=== PATIENT | male | born 1990 | race Hispanic/Latino ===

== ENCOUNTER 2020-09-10 12:32 | Outpatient (CLI) | payer OTHER, SELFPAY ==
--- NOTE | ~2020-09-10 | CT_ITS ---
EXAMINATION: CT abdomen pelvis wo con EXAM DATE: 09/10/2020 12:56 INDICATION: Low abdominal pain. TECHNIQUE: Spiral CT of the abdomen and pelvis was performed without contrast. Axial, coronal and s agittal images were reviewed. The dose-length product (DLP) for this examination was 928.48 mGy-cm. The exposure was tailored according to patient size (auto mA exposure control), and iterative recons truction (ASIR) was used as additional dose reduction technique. Comparison is made to prior examinat ion from 04/26/2019. FINDINGS: There is caudate liver lobe hypertrophy. The liver, spleen, adrenal glands and pancreas ar e otherwise unremarkable. Gallbladder is unremarkable. No biliary obstruction. There are 3 mm right inferior calyceal stone, 2 mm left inferior calyceal stone. No ureteral stones or hydronephrosis. T he prostate is unremarkable. Small bilateral inguinal fat-containing hernias. The bladder is unremar kable. There is no retroperitoneal or pelvic lymphadenopathy. The appendix is normal. The stomach and small bowel are unremarkable. There is expected amount of c olonic stool. No free intraperitoneal gas. The heart is normal in size. There are no pericardial or pleural effusions. The lung bases are unremarkable. Eventration of the right hemidiaphragm with some fat-containing hernias extending above it from the abdomen. The bones are unremarkable. IMPRESSION: 1. No acute intra-abdominal findings. 2. Bilateral nephrolithiasis. 3. Small inguinal hernias. 4. Right hemidiaphragm eventration, fat-containing Bochdalek hernias. Reviewed, dictated and finalized at location A.
== END 2020-09-10 12:33 | disposition home or self-care (01) ==
PROVIDERS: PCP Registered Nurse; Visit Provider Registered Nurse
DX: R10.30 Lower abdominal pain, unspecified (principal); N20.0 Calculus of kidney; K40.20 Bilateral inguinal hernia, without obstruction or gangrene, not specified as recurrent
CPT/HCPCS: 74176

== ENCOUNTER 2021-05-01 08:08 | Outpatient (CLI) | payer OTHER, SELFPAY ==
--- NOTE | ~2021-05-01 | CT_ITS ---
EXAMINATION: CT chest abdomen pelvis w con EXAM DATE: 05/01/2021 08:50 INDICATION: Diaphragmatic hernia. TECHNIQUE: Spiral CT of the chest, abdomen and pelvis was performed following intravenous injection o f 100 mL Omnipaque 350. Axial, coronal and sagittal images chest, abdomen and pelvis were reviewed. Coronal maximum intensity pixel images of chest reviewed. The dose-length product (DLP) for this ex amination was 906.63 mGy-cm. The exposure was tailored according to patient size (auto mA exposure c ontrol), and iterative reconstruction (ASIR) was used as additional dose reduction technique. Compari son is made to prior examination from 09/10/2020. FINDINGS: CHEST: Again there is a sizable region of right perirenal fat herniating through the hemidiaphragm po sterolaterally, right kidney having a high position but still intrathoracic. The lungs are clear. T here are no pleural or pericardial effusions. Tracheobronchial tree is patent. There is no medias tinal, hilar or axillary lymphadenopathy. There is no pneumothorax. Heart normal in size. No ev idence of coronary arterial calcification. ABDOMEN PELVIS: The liver, spleen, adrenal glands and pancreas are unremarkable. The gallbladder is contracted but otherwise unremarkable. Portal and splenic veins are patent. There is 3 mm right neph rolithiasis, and punctate on the left. Kidneys enhance symmetrically. There is no hydronephrosis. The prostate is unremarkable. Small bilateral inguinal fat-containing hernias. The bladder is unrema rkable. There is no retroperitoneal or pelvic lymphadenopathy. Small umbilical fat-containing heather ia. The appendix is normal in appearance, subhepatic position The stomach and small bowel are unremarkab le. There is expected amount of colonic stool. No free intraperitoneal gas. There are no osteobl astic or osteolytic lesions identified. IMPRESSION: 1. Sizable right-sided Bochdalek hernia, diaphragmatic eventration. 2. Small umbilical, inguinal fat-containing hernias. 3. Small bilateral nephrolithiasis. Reviewed, dictated and finalized at location B.
== END 2021-05-01 08:09 | disposition home or self-care (01) ==
PROVIDERS: PCP Registered Nurse
DX: K44.0 Diaphragmatic hernia with obstruction, without gangrene (principal); N20.0 Calculus of kidney; K42.9 Umbilical hernia without obstruction or gangrene; K40.90 Unilateral inguinal hernia, without obstruction or gangrene, not specified as recurrent
CPT/HCPCS: 71260; 74177; Q9967

== ENCOUNTER 2022-04-25 08:15 | Outpatient (CLI) | payer OTHER, SELFPAY ==
--- NOTE | ~2022-04-25 | CT_ITS ---
EXAMINATION: CT abdomen pelvis wo con DATE: 04/25/2022 08:34 INDICATION: Diaphragmatic hernia TECHNIQUE: Computed tomography (CT) of the abdomen and pelvis was performed without intravenous contr ast. The dose-length product (DLP) was 05/01/2021 mGy-cm. Automated exposure control and iterative rec onstruction technique were employed. COMPARISON: 05/01/2021 FINDINGS: The lung bases are clear. The heart size is normal. There are stable posterior diaphragmati c hernias on the right, one of which contain fat and the other a tiny portion of the upper pole of th e right kidney. There is nodularity of the liver surface. The spleen, pancreas, gallbladder, and adre nal glands are normal. There is a 6 mm nonobstructing stone of the right kidney lower pole. There is a 5 mm nonobstructing stone of the left mid kidney. No pathologically enlarged abdominal or pelvic ly mph nodes are identified. There is no free intraperitoneal gas or evidence of bowel obstruction. The appendix is normal. There is a fat-containing umbilical hernia. There is mild lumbar spondylosis. IMPRESSION: 1. Stable small right posterior diaphragmatic hernias. 2. Bilateral nonobstructing nephrolithiasis. 3. Mild nodularity of the liver surface, consistent with cirrhosis. Reviewed, dictated and finalized at location A.
== END 2022-04-25 08:16 | disposition home or self-care (01) ==
PROVIDERS: PCP Registered Nurse; Visit Provider Registered Nurse
DX: K44.9 Diaphragmatic hernia without obstruction or gangrene (principal); N20.0 Calculus of kidney; K76.89 Other specified diseases of liver
CPT/HCPCS: 74176

== ENCOUNTER 2022-08-26 10:01 | Outpatient (CLI) | payer OTHER, SELFPAY ==
--- NOTE | ~2022-08-26 | CT_ITS ---
EXAMINATION: CT abdomen pelvis wo/w con DATE: 08/26/2022 10:41 INDICATION: Kidney stone. TECHNIQUE: Computed tomography (CT) of the abdomen and pelvis was performed without and with intraven ous contrast using a total of 130 mL Omnipaque-350 intravenous contrast with a double-bolus technique for simultaneous opacification of the renal parenchyma and renal collecting system. Automated exposu re control and iterative reconstruction technique were employed. The dose-length product was 2352.33 mGy-cm. COMPARISON: CT abdomen and pelvis 04/25/22 FINDINGS: The visualized portions of the lung bases demonstrate minimal atelectasis. There is a right posterior diaphragmatic hernia containing fat. No pleural effusion. The heart size is normal. No pericardial e ffusion. The liver, gallbladder, spleen, pancreas, and adrenal glands are normal. There are 3 mm and 1 mm stones in right kidney. There is a 2 mm in left kidney. The ureters are well opacified and are n ormal. The bladder is normal. There are bilateral inguinal hernias containing fat. The prostate is mi ldly enlarged. There are no dilated loops of bowel. The appendix is normal. There are no pathological ly enlarged lymph nodes. There is no free intraperitoneal fluid. There is mild thoracolumbar spondylo sis. IMPRESSION: 1. Bilateral nonobstructing kidney stones. Reviewed, dictated and finalized at location A.
--- NOTE | ~2022-08-26 | XR_ITS ---
EXAMINATION: XR abdomen/kub 1V DATE: 08/26/2022 10:17 INDICATION: Calculus of kidney. TECHNIQUE: A supine view of the abdomen on 2 radiographs was obtained. COMPARISON: CT abdomen and pelvis 08/26/2022 FINDINGS: There are no dilated loops of bowel. There is a 3 mm stone in right kidney. There is a 2 mm stone in left kidney. IMPRESSION: 1. Bilateral kidney stones. Reviewed, dictated and finalized at location A. IMPRESSION: 1. Bilateral kidney stones.
== END 2022-08-26 10:02 | disposition home or self-care (01) ==
PROVIDERS: PCP Registered Nurse; Visit Provider Nurse Practitioner
DX: N20.0 Calculus of kidney (principal)
CPT/HCPCS: 74018; 74178; Q9967